=== PATIENT | female | born 1950 | race Caucasian/White ===

== ENCOUNTER 2020-05-27 15:24 | Outpatient (CLI) | payer MEDICARE ==
[2020-05-27] MEDS ORDERED: magnesium PO (16:35)
[2020-05-27] MEDS ORDERED: CYAN1TAB29 PO (16:35)
[2020-05-27] MEDS ORDERED: CALC-534 PO (16:35)
[2020-05-27] MEDS ORDERED: PYRI100T9 PO (16:35)
[2020-05-27] MEDS ORDERED: ASCO100018 PO (16:35)
[2020-05-27] MEDS ORDERED: ZOLP5TAB6 PO (16:35)
[2020-05-27] MEDS ORDERED: zinc PO (16:35)
[2020-05-27] MEDS ORDERED: MULT-717 PO (16:35)
[2020-05-27] MEDS ORDERED: vitamin d3 PO (16:35)
[2020-05-27] MEDS ORDERED: DIAZ5TAB4 PO (16:35)
[2020-05-27] MEDS ORDERED: TRAM50TA2 PO (16:35)
[2020-05-27] MEDS ORDERED: [UNRECOGNIZED DRUG - OTHER] PO (16:35)
[2020-05-31] MEDS ORDERED: ASPI81TA45 PO (14:56)
== END 2020-05-27 23:59 | disposition home or self-care (01) ==
LOC: STAR 15:24
PROVIDERS: ATTEND Orthopaedic Surgery
DX: Z02.9 Encounter for administrative examinations, unspecified (principal)